=== PATIENT | male | born 1985 | race Two or more races ===

== ENCOUNTER 2023-06-20 05:52 | Emergency (ER) | payer MEDICAID ==
[~2023-06-20] VITALS: Ht 185.4 cm; Wt 120.5 kg
[2023-06-20] MEDS: KETOROLAC TROMETHAMINE 30 MG/ML VIAL IVP ONE (06:18)
[2023-06-20] MEDS: PB/HYOSCY/ATR/SCOP/LIDO/MAALOX 55 ML BOTTLE PO ONE (06:19)
[2023-06-20 06:23] LABS: BASOPHILS % (AUTO) 0.6 % (0.0-2.0); EOSINOPHILS % (AUTO) 2.8 % (1.0-6.0); HEMATOCRIT 45.7 % (41-53); HEMOGLOBIN 15.9 g/dL (13.5-17.5); LYMPHOCYTES # (AUTO) 3.2 K/uL (1.0-4.8); LYMPHOCYTES % (AUTO) 29.5 % (22.0-44.0); MEAN CORPUSCULAR HEMOGLOBIN 30.7 pg (26.0-34.0); MEAN CORPUSCULAR HGB CONC 34.8 G/dL (31.0-37.0); MEAN CORPUSCULAR VOLUME 88 fL (80-100); MONOCYTES # (AUTO) 0.8 K/uL (0.1-1.0); MONOCYTES % (AUTO) 7.1 % (2.0-9.0); NEUTROPHILS # (AUTO) 6.5 K/uL (1.8-7.7); PLATELET COUNT (AUTO) 255 K/uL (150-450); RED BLOOD CELL COUNT(AUTO) 5.18 MIL/uL (4.50-5.90); RED CELL DISTRIBUTION WIDTH 13.8 % (11.5-14.5); WHITE BLOOD COUNT (AUTO) 10.8 K/uL (4.5-11.0)
[2023-06-20 06:31] LABS: ANION GAP 11 mmol/L (8-16); CALCIUM, TOTAL 8.8 mg/dL (8.8-10.5); CARBON DIOXIDE 27 mmol/L (22-29); CHLORIDE 99 mmol/L (98-107); CREATININE 1.08 mg/dL (0.60-1.30); GLOMERULAR FILTR. RATE CALC > 60 mL/min (>60); GLUCOSE,RANDOM 124 mg/dL (70-110); POTASSIUM 3.4 mmol/L (3.5-5.1); SODIUM SERUM 137 mmol/L (136-145); UREA NITROGEN, BLOOD 17 mg/dL (7-18)
[2023-06-20 06:46] LABS: B-TYPE NATRIURETIC PEPTIDE < 5 pg/mL (0-100)
[2023-06-20 06:47] LABS: TROPONIN I-HIGH SENSITIVITY Less Than 4 ng/L (<76)
[2023-06-20 06:56] LABS: ALANINE AMINOTRANSFERASE 45 U/L (12-78); ALBUMIN 3.9 g/dL (3.4-5.0); ALKALINE PHOSPHATASE 71 U/L (46-116); ASPARTATE AMINOTRANSFERASE 27 U/L (15-37); BILIRUBIN,TOTAL 0.3 mg/dL (0.1-1.0); CREATINE KINASE, TOTAL ONLY 236 U/L (39-308); LIPASE 46 U/L (16-77); TOTAL PROTEIN, SERUM 7.8 g/dL (6.4-8.2)
[2023-06-20] MEDS: MORPHINE SULFATE 4 MG/ML SYRINGE IVP ONE (07:04)
[2023-06-20] MEDS: ONDANSETRON HCL 4 MG/2 ML VIAL IVP ONE (07:04)
[2023-06-20] MEDS ORDERED: SODIUM CHLORIDE 0.9% 100 ML ONE (07:09)
[2023-06-20] MEDS ORDERED: IOHEXOL 350 MG/ML 100 ML VIAL ONE (07:10)
[2023-06-20 08:09] LABS: APPEARANCE,URINE CLEAR (CLEAR); BILIRUBIN,URINE NEGATIVE (NEGATIVE); COLOR,URINE LIGHT YELLOW (YELLOW); GLUCOSE, URINE (UA) NEGATIVE (NEGATIVE); KETONES,URINE TRACE mg/dL (NEGATIVE); LEUKOCYTE ESTERASE ,URINE NEGATIVE (NEGATIVE); NITRATE,URINE NEGATIVE (NEGATIVE); OCCULT BLOOD,URINE NEGATIVE (NEGATIVE); PH,URINE 5.5 (5.0-8.0); PROTEIN,URINE NEGATIVE (NEGATIVE); SPECIFIC GRAVITIY, URINE 1.024 (1.003-1.030); UROBILINOGEN,URINE <=1.0 mg/dL (<=1.0)
[2023-06-20] MEDS: FAMOTIDINE 20 MG TABLET PO ONE (08:41)
[2023-06-20] MEDS: POTASSIUM CHLORIDE 20 MEQ ER TABLET PO ONE (08:42)
[2023-06-20 09:03] VITALS: BP 152/90; PULSE 83; RESP 20; TEMP 98.3
[2023-06-20] MEDS ORDERED: FAMO20 PO (09:06)
[2023-06-20] MEDS ORDERED: ONDA-104 PO (09:06)
== END 2023-06-20 09:25 | disposition home or self-care (01) ==
LOC: EDBD 05:54 → EMS 05:54
DX: R10.13 Epigastric pain (principal)
CPT/HCPCS: 99285; 74177; 96374; 71045; 96375; 80053; 81003; 82550; 83690; 83880; 84484; 85025; 36415; 93005; J1885; J2270; J2405; Q9967; J7050